=== PATIENT | male | born 1995 | race African-American/Black ===

== ENCOUNTER 2020-02-18 20:52 | Emergency (ER) | payer MEDICAID, SELFPAY ==
[2020-02-18 20:58] VITALS: BP 143/75; PULSE 76; RESP 18; TEMP 36.7; O2SAT 98
--- NOTE | 2020-02-18 21:04 | ED.MALEGU ---
HPI - Male Genitourinary General Chief complaint: Urogenital-Male Stated complaint: STI Time Seen by Provider: 02/18/20 20:56 Source: patient Mode of arrival: ambulatory Limitations: no limitations History of Present Illness HPI Narrative: This is a 24-year-old male that presents the emergency department for dysuria x5 days. Associated with abnormal urethral discharge. Does report history of recent unprotected sex. Denies fever, rash, abdominal pain, or vomiting. Related Data Allergies Allergy/AdvReac Type Severity Reaction Status Date / Time No Known Allergies Allergy Verified 02/18/20 21:34 Review of Systems Review of Systems: Narrative: CONSTITUTIONAL: Denies fever GASTROINTESTINAL: Denies abdominal pain, vomiting GENITOURINARY: Reports dysuria SKIN: Denies rash All systems reviewed & are unremarkable except as noted in HPI and below PMFSH Past Medical History Medical History (Updated 02/18/20 @ 21:29 by Erika Schumacher PA-C) No active medical problems Social History Social History (Updated 02/18/20 @ 21:11 by Erika Schumacher PA-C) Substance use: never Exam Narrative: Exam Narrative: GENERAL: Well-appearing, well-nourished, and in no acute distress. HEAD: Normocephalic, atraumatic. EYES: EOMI. CHEST: Clear to auscultation. No respiratory distress. No wheezes rales or rhonchi HEART: Regular rate and rhythm. No murmur heard. Normal peripheral pulses. ABDOMEN: Soft, nontender, nondistended, normal active bowel sounds. EXTREMITIES: Normal range of motion. No edema. SKIN: Warm, dry, no rash. NEURO: No focal deficits. Alert and oriented x3. PSYCH: Normal mood and affect MALE GENITAL: No rashes noted. No testicular tenderness or edema. Abnormal white urethral discharge noted Course Vital Signs Vital signs: Vital Signs Temperature 98.0 F 02/18/20 20:58 Pulse Rate 76 02/18/20 20:58 Respiratory Rate 18 02/18/20 20:58 Blood Pressure 143/75 H 02/18/20 20:58 Pulse Oximetry 98 02/18/20 20:58 Temperature 98.0 F 02/18/20 20:58 Pulse Rate 76 02/18/20 20:58 Respiratory Rate 18 02/18/20 20:58 Blood Pressure 143/75 H 02/18/20 20:58 Pulse Oximetry 98 02/18/20 20:58 MDM - Male Genitourinary MDM Narrative Medical decision making narrative: Patient presents the emergency department for dysuria and abnormal urethral discharge. He is afebrile and nontoxic-appearing. Denies any fever, abdominal pain, or vomiting. UA with leuk esterase, white blood cells, and bacteria. Chlamydia, gonorrhea, and trichomonas pending. Patient will be presumptively treated. He is to follow-up with his primary care doctor. He was given warnings to return to the ER Lab Data Attestation: I reviewed the patient's lab results. Labs: Lab Results 02/18/20 02/18/20 Range/Units 21:07 21:07 Urine Color Yellow (Yellow) Urine Appearance Cloudy H (Clear) Urine pH 6.0 (5.0-9.0) Ur Specific [place] 1.013 (1.001-1.035) Urine Protein 1+ H (Negative) mg/dL Urine Glucose (UA) Negative (Negative) mg/dL Urine Ketones Negative (Negative) mg/dL Ur Blood (Man) 1+ H (Negative) Urine Nitrate Negative (Negative) Urine Bilirubin Negative (Negative) Urine Urobilinogen 2.0 H (<2.0) mg/dL Leukocyte Esterase Rfl 3+ H (Negative) SONIA/UL Urine RBC 21-50 H (0-2) /hpf Urine WBC >75 H /hpf Ur Squamous Epith Cells Rare (Few) /hpf Urine Bacteria 1+ H /hpf Urine Mucus Rare /lpf C.trachomatis RNA (TMA) Pending N.gonorrhoeae RNA (TMA) Pending T. vaginalis Amp RNA Pending Critical Care Time Critical Care Time Critical Care Time: No Discharge Plan Discharge Clinical Impression: Concern about STD in male without diagnosis Patient Disposition: Home, Self-Care Condition: Stable Instructions: Antibiotic Form, Sexually Transmitted Diseases (ED), Safe Sex Practices (ED) Additional Instructions: Return to the ER if you experience
[2020-02-18 21:30] LABS: Add Urine Microscopic? YES; Appearance Urine Cloudy (Clear); Bacteria Urine 1+ /hpf; Bilirubin Urine Negative (Negative); Blood Urine 1+ (Negative); Color Urine Yellow (Yellow); Glucose Urine UA Negative (Negative); Ketones Urine Negative (Negative); Leukocyte Esterase Ur 3+ LEU/UL (Negative); Mucus Urine Rare /lpf; Nitrate Urine Negative (Negative); Protein Urine 1+ mg/dL (Negative); RBC Urine 21-50 /hpf (0-2); Specific Grav Ur 1.013 (1.001-1.035); Squamous Epithelial Cell Urine Rare /hpf (Few); WBC Urine >75 /hpf
[2020-02-18] MEDS: metroNIDAZOLE 250 MG TABLET 2000 MG PO (21:35)
[2020-02-18] MEDS: AZITHROMYCIN 250 MG TABLET 1000 MG PO (21:35)
[2020-02-18] MEDS: cefTRIAXone 250 MG VIAL IM (21:36)
== END 2020-02-18 22:25 | disposition home or self-care (01) ==
LOC: ANHED 22:00
PROVIDERS: Physician Assistant; Emergency Provider Emergency Medicine
DX: R30.0 Dysuria (principal); R36.9 Urethral discharge, unspecified
CPT/HCPCS: 81001; 87086; 87491; 87591; 87661; 96372; 99283; A9270; J0696